=== PATIENT | female | born 1980 | race Caucasian/White ===

== ENCOUNTER 2024-12-08 14:41 | Emergency (ER) | payer OTHER ==
[2024-12-08 14:49] VITALS: RESP 16
[2024-12-08 14:59] LABS: Glucose,Whole Blood 154 mg/dL (70-110)
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
[2024-12-08] MEDS: MORPHINE SULFATE 4 MG/ML SYRINGE IV STA ×2 (15:02→15:54)
[2024-12-08] MEDS: ONDANSETRON 4 MG/2 ML VIAL IVP STA (15:03)
[2024-12-08 15:04] LABS: Basophils % (A) 0 %; Eosinophils # (A) 0.1 k/uL (0-0.7); Eosinophils % (A) 1 %; HCT 39.9 % (34.0-46.0); HGB 12.4 gm/dL (11.4-16.0); Lymphocytes # (A) 2.2 k/uL (1.0-4.8); Lymphocytes % (A) 28 %; MCV 99.8 fL (80.0-100.0); Mean Platelet Volume 6.7; Monocytes # (A) 0.5 k/uL (0-1.0); Monocytes % (A) 6 %; Neutrophils # (A) 4.8 k/uL (1.3-7.7); Neutrophils % (A) 61 %; Platelet Count 539 k/uL (150-450); RDW 12.6 % (11.5-15.5); WBC 7.9 k/uL (3.8-10.6)
[2024-12-08] MEDS: SODIUM CHLORIDE 0.9% 1,000 ML IV STA (15:04)
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
[2024-12-08] MEDS: LIDOCAINE 1%-EPI 1:100,000 20 ML VIAL SQ STA (15:52)
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
[2024-12-08 16:44] LABS: INR 0.8 (<1.2); Partial Thromboplastin Time 20.1 sec (22.0-30.0); Prothrombin Time 9.7 sec (10.0-12.5)
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
[2024-12-08 17:02] LABS: Potassium 4.8 mmol/L (3.5-5.1)
[2024-12-08 17:03] LABS: ALT 52 U/L (4-34); AST 97 U/L (14-36); African American GFR (CKD) >90 (>60 ml/min/1.73 sqM); Alkaline Phosphatase 73 U/L (38-126); Anion Gap 8 mmol/L; Blood Urea Nitrogen 16 mg/dL (7-17); Calcium 8.6 mg/dL (8.4-10.2); Carbon Dioxide 23 mmol/L (22-30); Chloride 104 mmol/L (98-107); Glucose 111 mg/dL (74-99); Non-African American GFR(CKD) >90 (>60 ml/min/1.73 sqM); Sodium 135 mmol/L (137-145); Total Bilirubin 0.3 mg/dL (0.2-1.3); Total Protein 6.8 g/dL (6.3-8.2)
[2024-12-08 17:11] LABS: Alcohol 89 mg/dL
[2024-12-08] MEDS: HYDROmorphone 1 MG/ML 1 ML SYRINGE IVP STA (17:13)
[2024-12-08 17:46] VITALS: BP 132/78; PULSE 67; TEMP 98.8
[2024-12-08 17:54] LABS: Appearance,Urine Clear (Clear); Bilirubin,Urine Negative (Negative); Blood,Urine Small (Negative); Color,Urine Colorless; Glucose,Urine (UA) Negative (Negative); Ketones,Urine Negative (Negative); Leukocyte Esterase,Urine Negative (Negative); Mucus,Urine Rare /hpf; Nitrite,Urine Positive (Negative); PH, Urine 5.5 (5.0-8.0); Protein,Urine Trace (Negative); RBC,Urine 4 /hpf (0-5); Squamous Epithelial Cell,Urine <1 /hpf (0-4); Urobilinogen,Urine <2.0 mg/dL (<2.0); WBC,Urine 3 /hpf (0-5)
[2024-12-08 17:58] LABS: Amphetamine Screen,Urine Detected (NotDetected); Barbiturate Screen,Urine Not Detected (NotDetected); Benzodiazepines Screen,Urine Not Detected (NotDetected); Cocaine Screen,Urine Not Detected (NotDetected); Methadone Screen, Urine Not Detected (NotDetected); Opiate Screen,Urine Detected (NotDetected); Oxycodone Screen, Urine Not Detected (NotDetected); Phencyclidine Screen,Urine Not Detected (NotDetected); Tricyclic Antidepressant,Urine Not Detected (NotDetected); Urn Cannabinoid Scrn Detected (NotDetected)
[2024-12-08 18:09] LABS: Specific Gravity,Urine >1.050 (1.001-1.035)
== END 2024-12-08 17:45 | disposition other institution (70) ==
LOC: EC 14:41
DX: S02.412A LeFort II fracture, initial encounter for closed fracture (principal); S22.42XA Multiple fractures of ribs, left side, initial encounter for closed fracture; S01.01XA Laceration without foreign body of scalp, initial encounter; F10.10 Alcohol abuse, uncomplicated; F19.90 Other psychoactive substance use, unspecified, uncomplicated; M79.622 Pain in left upper arm; F17.200 Nicotine dependence, unspecified, uncomplicated; V89.2XXA Person injured in unspecified motor-vehicle accident, traffic, initial encounter; Y92.410 Unspecified street and highway as the place of occurrence of the external cause
CPT/HCPCS: 36415; 93005; 86900; 86901; 80053; 84484; 85025; 85610; 85730; 86850; 81001; 80306; 72170; 73030; 71045; 72125; 70486; 70450; 71260; 74177; 12001; 99291; 96365; 96375 ×3; 96376; 96361; G0480; J2270; J0690; J2405; J1171; Q9967; 80320